=== PATIENT | male | born 1955 | race Caucasian/White ===

== ENCOUNTER 2020-10-03 10:52 | Emergency (ER) | payer MEDICARE ==
[2020-10-03 11:13] VITALS: BP 183/120; PULSE 123
[2020-10-03] MEDS ORDERED: Sodium Chloride 0.9% 10 ML Syringe FLUSH PRN (11:29)
--- NOTE | 2020-10-03 11:34 | EDM.PDOC ---
ED HPI GENERAL MEDICAL PROBLEM - General Chief Complaint: Cardiovascular Problem Stated Complaint: RETAINING WATER IN LEGS AND ABDOMEN Time Seen by Provider: 10/03/20 11:05 Source of Information: Reports: Patient, RN Notes Reviewed History Limitations: Reports: No Limitations - History of Present Illness INITIAL COMMENTS - FREE TEXT/NARRATIVE: Patient is a 64-year-old male presenting to the emergency department with complaints of a 2 to 3-week history of lower extremity edema and ascites. This is new for him. He states he has never had problems with edema in the past. Lewis s had no history of congestive heart failure or liver abnormalities. He does not have a primary care provider and has not seen a medical provider for about 5 years. He states has been taking an [id number] water pill with little relief. Has been wearing compression socks which are on at this time. He denies any chest pain, shortness of breath, or orthopnea. States he does have a mild cough which has been occurring for the last few weeks. Right Abdomen Pain Score (Numeric/FACES): 5 - Related Data Allergies Allergy/AdvReac Type Severity Reaction Status Date / Time Penicillins Allergy Hives Verified 10/03/20 11:02 Home Meds: Home Meds Ascorbic Acid [Vitamin C] 3,000 mg PO DAILY 10/03/20 [History] Baking Soda 0.5 tsp PO DAILY 10/03/20 [History] Cholecalciferol (Vitamin D3) [Vitamin D3] 5,000 mg PO DAILY 10/03/20 [History] Magnesium 250 mg PO DAILY 10/03/20 [History] Vitamin A 8,000 unit PO DAILY 10/03/20 [History] Zinc 50 mg PO DAILY 10/03/20 [History] Past Medical History HEENT History: Reports: Cataract, Impaired Vision Cardiovascular History: Reports: None Respiratory History: Reports: None Gastrointestinal History: Reports: None Genitourinary History: Reports: Other (See Below) Other Genitourinary History: burning with voiding "I cant pee much" Musculoskeletal History: Reports: Back Pain, Chronic Neurological History: Reports: None Psychiatric History: Reports: None Endocrine/Metabolic History: Reports: Obesity/BMI 30+ Hematologic History: Reports: None Immunologic History: Reports: None Oncologic (Cancer) History: Reports: None Dermatologic History: Reports: None - Infectious Disease History Infectious Disease History: Reports: Chicken Pox, Measles, Mumps, Rubella - Past Surgical History Head Surgeries/Procedures: Reports: None HEENT Surgical History: Reports: Cataract Surgery, Oral Surgery Other Musculoskeletal Surgeries/Procedures:: torn muscle surgery Social & Family History - Family History Family Medical History: No Pertinent Family History Endocrine/Metabolic: Reports: Diabetes, type II - Tobacco Use Tobacco Use Status *Q: Never Tobacco User - Caffeine Use Caffeine Use: Reports: Coffee - Recreational Drug Use Recreational Drug Use: Yes Drug Use in Last 12 Months: No Recreational Drug Type: Reports: Marijuana/Hashish Recreational Drug Use Frequency: Not Used In Over 1 Year ED ROS GENERAL - Review of Systems Review Of Systems: See Below Constitutional: Reports: No Symptoms. Denies: Fever, Chills, Weakness HEENT: Reports: No Symptoms Respiratory: Reports: Cough. Denies: Shortness of Breath Cardiovascular: Reports: Edema. Denies: Chest Pain, Lightheadedness, Syncope Endocrine: Reports: No Symptoms GI/Abdominal: Reports: No Symptoms : Reports: No Symptoms Musculoskeletal: Reports: No Symptoms Skin: Reports: No Symptoms Neurological: Reports: No Symptoms Psychiatric: Reports: No Symptoms Hematologic/Lymphatic: Reports: No Symptoms Immunologic: Reports: No Symptoms ED EXAM, GENERAL - Physical Exam Exam: See Below General Appearance: Alert, WD/WN, No Apparent Distress Respiratory/Chest: No Respiratory Distress, Normal Breath Sounds, No Accessory Muscle Use, Chest Non-Tender, Crackles (Bilateral bases) Cardiovascular: Normal Peripheral Pulses, Regular Rate, Rhythm, No Gallop, No JVD, No Murmur, No Rub, Other (4+ pitting edema to bilateral lower extremities extending up through the abdomen.) Neurological: Alert, Oriented, CN II-XII Intact, Normal Cognition, Normal Gait, Normal Reflexes, No Motor/Sensory Deficits Psychiatric: Normal Affect, Normal Mood Skin Exam: Warm, Dry, Intact, Normal Color, No Rash Course - Vital Signs Last Recorded V/S: Last Vital Signs Temp 97.1 F 10/03/20 11:08 Pulse 123 H 10/03/20 11:08 Resp 20 10/03/20 11:08 BP 183/120 H 10/03/20 11:08 Pulse Ox 90 L 10/03/20 11:08 - Orders/Labs/Meds Labs: Laboratory Tests 10/03/20 10/03/20 10/03/20 Range/Units 11:20 11:20 11:20 WBC 4.73 (4.23-9.07) K/mm3 RBC 4.89 (4.63-6.08) M/mm3 Hgb 14.9 D (13.7-17.5) gm/dl Hct 45.2 (40.1-51.0) % MCV 92.4 H D (79.0-92.2) fl MCH 30.5 (25.7-32.2) pg MCHC 33.0 (32.2-35.5) g/dl RDW Std Deviation 46.9 H (35.1-43.9) fL Plt Count 249 D (163-337) K/mm3 MPV 9.8 (9.4-12.3) fl Neut % (Auto) 61.0 (34.0-67.9) % Lymph % (Auto) 19.5 L (21.8-53.1) % [place] % (Auto) 16.1 H (5.3-12.2) % Eos % (Auto) 2.1 (0.8-7.0) Baso % (Auto) 0.2 (0.1-1.2) % Neut # (Auto) 2.89 (1.78-5.38) K/mm3 Lymph # (Auto) 0.92 L (1.32-3.57) K/mm3 [place] # (Auto) 0.76 (0.30-0.82) K/mm3 Eos # (Auto) 0.10 (0.04-0.54) K/mm3 Baso # (Auto) 0.01 (0.01-0.08) K/mm3 Manual Slide Review Abnormal smear Sodium 141 (136-145) mEq/L Potassium 3.8 (3.5-5.1) mEq/L Chloride 101 (98-107) mEq/L Carbon Dioxide 30 D (21-32) mEq/L Anion Gap 13.8 (5-15) BUN 35 H (7-18) mg/dL Creatinine 2.6 H D (0.7-1.3) mg/dL Est Cr Clr Drug Dosing 27.40 mL/min Estimated GFR (MDRD) 25 (>60) mL/min BUN/Creatinine Ratio 13.5 L (14-18) Glucose 174 H (80-115) mg/dL Calcium 8.8 (8.5-10.1) mg/dL Total Bilirubin 0.8 (0.2-1.0) mg/dL AST 28 (15-37) U/L ALT 22 (16-63) U/L Alkaline Phosphatase 138 H (46-116) U/L Troponin I 0.248 H* (0.00-0.056) ng/mL C-Reactive Protein 7.7 H* (<1.0) mg/dL NT-Pro-B Natriuret Pep 06828 H (0-125) pg/mL Total Protein 7.2 (6.4-8.2) g/dl Albumin 2.4 L (3.4-5.0) g/dl Globulin 4.8 gm/dL Albumin/Globulin Ratio 0.5 L (1-2) SARS-CoV-2 RNA (EKATERINA) (NEGATIVE) 10/03/20 Range/Units 13:00 WBC (4.23-9.07) K/mm3 RBC (4.63-6.08) M/mm3 Hgb (13.7-17.5) gm/dl Hct (40.1-51.0) % MCV (79.0-92.2) fl MCH (25.7-32.2) pg MCHC (32.2-35.5) g/dl RDW Std Deviation (35.1-43.9) fL Plt Count (163-337) K/mm3 MPV (9.4-12.3) fl Neut % (Auto) (34.0-67.9) % Lymph % (Auto) (21.8-53.1) % [place] % (Auto) (5.3-12.2) % Eos % (Auto) (0.8-7.0) Baso % (Auto) (0.1-1.2) % Neut # (Auto) (1.78-5.38) K/mm3 Lymph # (Auto) (1.32-3.57) K/mm3 [place] # (Auto) (0.30-0.82) K/mm3 Eos # (Auto) (0.04-0.54) K/mm3 Baso # (Auto) (0.01-0.08) K/mm3 Manual Slide Review Sodium (136-145) mEq/L Potassium (3.5-5.1) mEq/L Chloride (98-107) mEq/L Carbon Dioxide (21-32) mEq/L Anion Gap (5-15) BUN (7-18) mg/dL Creatinine (0.7-1.3) mg/dL Est Cr Clr Drug Dosing mL/min Estimated GFR (MDRD) (>60) mL/min BUN/Creatinine Ratio (14-18) Glucose (80-115) mg/dL Calcium (8.5-10.1) mg/dL Total Bilirubin (0.2-1.0) mg/dL AST (15-37) U/L ALT (16-63) U/L Alkaline Phosphatase (46-116) U/L Troponin I (0.00-0.056) ng/mL C-Reactive Protein (<1.0) mg/dL NT-Pro-B Natriuret Pep (0-125) pg/mL Total Protein (6.4-8.2) g/dl Albumin (3.4-5.0) g/dl Globulin gm/dL Albumin/Globulin Ratio (1-2) SARS-CoV-2 RNA (EKATERINA) Negative (NEGATIVE) Meds: Medications Discontinued Medications Generic Name Dose Route Start Last Admin Trade Name Freq PRN Reason Stop Dose Admin Furosemide 40 mg 10/03/20 12:55 10/03/20 13:05 Lasix IVPUSH 10/03/20 12:56 40 mg NOW ONE Administration Sodium Chloride 10 ml 10/03/20 11:29 10/03/20 12:09 Saline Flush FLUSH 10 ml ASDIRECTED PRN Administration Keep Vein Open - Re-Assessments/Exams Free Text/Narrative Re-Assessment/Exam: Patient is a 64-year-old male presenting to the emergency department with complaints of lower extremity edema extending up into his abdomen which began approximately 2 to 3 weeks ago. States has been taking an [id number] diuretic with no relief. He has been wearing compression stockings as well with no relief. Patient denies any cardiac history, however he also does not have a primary care provider and has not seen a medical provider for the last 5 years. He denies any significant shortness of breath, however oxygen saturations have been ranging from 87 to 90% on room air. He is currently on 2 L of oxygen satting in the upper 90s. He has had no chest pain that he can recall over the course of the last few weeks and denied any chest pain at the time of my exam. On exam, he does have crackles to the bilateral posterior bases of his lungs. Abdomen is taut and he has 4+ pitting edema to his bilateral lower extremities. I have ordered cardiac work-up including CBC, CMP, CRP, troponin, EKG, chest x- ray. We will also complete a CT scan of his abdomen pelvis without contrast. 10/03/20 13:34 Hematology was significant for BUN elevated at 35, creatinine 2.6, glucose 174, troponin 0 0.248, CRP 7.7, proBNP 14,550. EKG was negative for any acute ischemia. Chest x-ray showed generalized pulmonary vascular congestion suspicious for fluid overload. CT scan of the abdomen pelvis showed 1. Anasarca with bilateral pleural effusions likely due to fluid overload. 2. Bilateral simple renal cyst. 3. Minimal ascites. 4. Diverticulosis of the left colon. Based on these findings, patient is suffering from congestive heart failure as well as renal failure. Called and spoke with the register in chancery, Dr. Brown, at [facility] in [place]. He is recommending patient be transferred to cardiology services for further work-up. I have ordered a [address] Brown recommended that we give him Lasix 40 mg IV. I will call [facility] back once Covid results are available. 10/03/20 14:29 Patient's Covid results were negative. Called [facility] and spoke with hospitalist, Dr. Bean. He has accepted the patient for transfer. They will call back with her room number. Once her numbers given, we will dispatch [facility] ambulance for transfer. Departure - Departure Time of Disposition: 14:29 Disposition: DC/Tfer to [facility] 02 Reason for Transfer *Q: Other Condition: Good Clinical Impression: Elevated troponin Heart failure Qualifiers: Heart failure type: unspecified Heart failure chronicity: unspecified Qualified Code(s): I50.9 - Heart failure, unspecified Kidney failure Qualifiers: Renal failure chronicity: unspecified chronicity Qualified Code(s): N19 - Unspecified kidney failure Referrals: PCP,None [Primary Care Provider] - Forms: ED Department Discharge Sepsis Event Note (ED) - Evaluation Sepsis Screening Result: No Definite Risk
--- NOTE | 2020-10-03 12:41 | CT ---
PROCEDURE INFORMATION: Exam: CT Abdomen And Pelvis Without Contrast Exam date and time: 10/03/2020 11:42 AM Age: 64 years old Clinical indication: Other: Ascites TECHNIQUE: Imaging protocol: Computed tomography of the abdomen and pelvis without contrast. COMPARISON: CT Abdomen Pelvis w Cont 10/21/2015 2:31 AM FINDINGS: Lungs: Bilateral pleural effusions. Prominent pulmonary vessels and interstitial markings. Liver: Normal. No mass. Gallbladder and bile ducts: Normal. No calcified stones. No ductal dilation. Pancreas: Normal. No ductal dilation. Spleen: Normal. No splenomegaly. Adrenal glands: Normal. No mass. Kidneys and ureters: Bilateral simple renal cysts. No hydronephrosis or nephrolithiasis. Stomach and bowel: No obstruction. No mucosal thickening. Diverticulosis of the descending and sigmoid colon. Appendix: No evidence of appendicitis. Intraperitoneal space: Unremarkable. No free air. Moderate amount of free fluid in the pelvis and left pericolic gutter. Vasculature: Unremarkable. No abdominal aortic aneurysm. Lymph nodes: Unremarkable. No enlarged lymph nodes. Urinary bladder: Bladder wall appears symmetrically thickened. Reproductive: Unremarkable as visualized. Bones/joints: Unremarkable. No acute fracture. Soft tissues: Anasarca. IMPRESSION: 1. Anasarca with bilateral pleural effusions likely due to fluid overload. 2. Bilateral simple renal cysts. 3. Minimal ascites. 4. Diverticulosis of the left colon. COMMENTS: Consistent with the [employer]'s Incidental Findings Committee white paper (J Am Christy Radiol 2018): Any incidental renal lesion less than 1 cm or classified as too small to characterize, or any incidental cystic renal lesion characterized as simple-appearing, is likely benign. No follow-up imaging is recommended for these lesions per consensus recommendations based on imaging criteria. Thank you for allowing us to participate in the care of your patient. Dictated and Authenticated by: Neftali Nguyen MD 10/03/2020 1:12 PM Central Time ([place] & [place]) [facility]
--- NOTE | 2020-10-03 12:42 | CR ---
PROCEDURE INFORMATION: Exam: XR Chest, 2 Views Exam date and time: 10/03/2020 11:39 AM Age: 64 years old Clinical indication: Other: Edema TECHNIQUE: Imaging protocol: XR of the chest Views: 2 views. COMPARISON: No relevant prior studies available. FINDINGS: Lungs: Pulmonary vasculature appears congested. Prominent interstitial markings bilaterally concerning for interstitial edema. Pleural space: Unremarkable. Left pleural effusion. No pneumothorax. Heart/Mediastinum: Unremarkable. No cardiomegaly. Bones/joints: Unremarkable. IMPRESSION: Radiographic findings suspicious for fluid overload. Follow-up recommended. Thank you for allowing us to participate in the care of your patient. Dictated and Authenticated by: Neftali Nguyen MD 10/03/2020 12:55 PM Central Time ([place] & [place]) [facility]
[2020-10-03] MEDS ORDERED: Furosemide 40 MG/4 ML VIAL IVPUSH ONE (12:55)
== END 2020-10-03 16:00 ==
LOC: JD.ED 10:52
DX: N19 Unspecified kidney failure (principal); I50.9 Heart failure, unspecified; R79.89 Other specified abnormal findings of blood chemistry; E66.9 Obesity, unspecified; Z68.26 Body mass index [BMI] 26.0-26.9, adult; Z88.0 Allergy status to penicillin; Z79.899 Other long term (current) drug therapy
CPT/HCPCS: 36415; 71046; 74176; 80053; 83880; 84484; 85025; 86140; 93005; 96374; 99285; J1940; U0002

== ENCOUNTER 2021-05-05 15:05 | Emergency (ER) | payer MEDICARE, OTHER ==
[2021-05-05 15:28] VITALS: BP 92/61; PULSE 88
[2021-05-05] MEDS ORDERED: Sodium Chloride 0.9% 10 ML Syringe FLUSH PRN (15:52)
[2021-05-05] MEDS ORDERED: Furosemide 40 MG/4 ML VIAL IVPUSH ONE ×2 (15:54→17:30)
--- NOTE | 2021-05-05 16:28 | CR ---
Chest: Portable view of the chest was obtained. Comparison: No previous study is available. Heart size is not enlarged. Upper mediastinum is normal. Lung markings are increased which are suspicious for pulmonary vascular congestion. Possible minimal pleural effusions are present. Impression: 1. Heart is not enlarged although lung galaviz have the appearance of mild CHF. Please correlate with the patient's symptoms. Diagnostic code #3
[2021-05-05] MEDS ORDERED: Furosemide 100 MG in Sodium Chloride 0.9% 90 ML IV STA (17:30)
--- NOTE | 2021-05-05 17:50 | EDM.PDOC ---
ED HPI GENERAL MEDICAL PROBLEM - General Chief Complaint: Cardiovascular Problem Stated Complaint: LEGS SWELLING Time Seen by Provider: 05/05/21 15:14 Source of Information: Reports: Patient History Limitations: Reports: No Limitations, Other (ED vital signs reveal a temp of 98.8, pulse of 88, respiratory rate of 20, blood pressure 92/61, and pulse ox 85% on room air.) - History of Present Illness INITIAL COMMENTS - FREE TEXT/NARRATIVE: 65-year-old male presents the emergency department with complaints of increasing shortness of breath and bilateral lower extremity swelling. Patient states he was hospitalized back in September after he was seen here in the emergency department. He was transferred to [facility] for CHF exacerbation and elevated troponins as well as renal failure. He states he stayed at the hospital for approximately week and was discharged home. He did not follow-up with a primary care provider and he does not have a primary care provider. He states he took his medications until they ran out which he states was only 3 weeks ago. Approximately 3 weeks ago he started having increased shortness of breath and leg swelling. Denies any recent fever, chills, nausea, vomiting or diarrhea. He states his abdomen is swollen as well. He has had orthopnea. He denies any cough. Of note he does have a history of renal failure, CHF, diabetes, and hypothyroidism. - Related Data Allergies Allergy/AdvReac Type Severity Reaction Status Date / Time Penicillins Allergy Hives Verified 05/05/21 15:28 Home Meds: Home Meds Ascorbic Acid [Vitamin C] 3,000 mg PO DAILY 10/03/20 [History] Cholecalciferol (Vitamin D3) [Vitamin D3] 5,000 mg PO DAILY 10/03/20 [History] Magnesium 250 mg PO DAILY 10/03/20 [History] Vitamin A 8,000 unit PO DAILY 10/03/20 [History] Zinc 50 mg PO DAILY 10/03/20 [History] Aspirin [Halfprin] 81 mg PO DAILY 05/05/21 [History] Dapagliflozin Propanediol [Farxiga] 10 mg PO DAILY 05/05/21 [History] Levothyroxine 25 mcg PO ACBREAKFAST 05/05/21 [History] Spironolactone [Aldactone] 25 mg PO DAILY 05/05/21 [History] Torsemide 20 mg PO BID 05/05/21 [History] atorvaSTATin [Lipitor] 20 mg PO DAILY 05/05/21 [History] carvediloL [Carvedilol] 25 mg PO DAILY 05/05/21 [History] lisinopriL [Lisinopril] 10 mg PO DAILY 05/05/21 [History] metFORMIN [Glucophage] 500 mg PO BIDMEALS 05/05/21 [History] Past Medical History HEENT History: Reports: Cataract, Impaired Vision Cardiovascular History: Reports: Heart Failure Respiratory History: Reports: None Gastrointestinal History: Reports: None Genitourinary History: Reports: Other (See Below) Other Genitourinary History: burning with voiding "I cant pee much" Musculoskeletal History: Reports: Back Pain, Chronic Neurological History: Reports: None Psychiatric History: Reports: None Endocrine/Metabolic History: Reports: Obesity/BMI 30+ Hematologic History: Reports: None Immunologic History: Reports: None Oncologic (Cancer) History: Reports: None Dermatologic History: Reports: None - Infectious Disease History Infectious Disease History: Reports: Chicken Pox, Measles, Mumps, Rubella - Past Surgical History HEENT Surgical History: Reports: Cataract Surgery, Oral Surgery Other Musculoskeletal Surgeries/Procedures:: torn muscle surgery Social & Family History - Family History Family Medical History: No Pertinent Family History Endocrine/Metabolic: Reports: Diabetes, type II - Tobacco Use Tobacco Use Status *Q: Never Tobacco User Second Hand Smoke Exposure: No - Caffeine Use Caffeine Use: Reports: Coffee, Tea - Recreational Drug Use Recreational Drug Use: No ED ROS GENERAL - Review of Systems Review Of Systems: See Below Constitutional: Reports: No Symptoms HEENT: Reports: No Symptoms Respiratory: Reports: Shortness of Breath. Denies: Wheezing, Pleuritic Chest Pain, Cough, Sputum Cardiovascular: Reports: Dyspnea on Exertion, Edema (4+ pitting), Orthopnea. Denies: Chest Pain, Palpitations, Syncope Endocrine: Reports: No Symptoms GI/Abdominal: Reports: Decreased Appetite, Distension. Denies: Abdominal Pain, Constipation, Diarrhea, Nausea, Vomiting : Reports: Urinary Retention Musculoskeletal: Reports: No Symptoms Skin: Reports: No Symptoms Neurological: Reports: No Symptoms Psychiatric: Reports: No Symptoms Hematologic/Lymphatic: Reports: No Symptoms Immunologic: Reports: No Symptoms ED EXAM, GENERAL - Physical Exam Exam: See Below Exam Limited By: No Limitations General Appearance: Alert, WD/WN, Mild Distress Eye Exam: Bilateral Eye: EOMI Ears: Normal External Exam, Hearing Grossly Normal Nose: Normal Inspection Throat/Mouth: Normal Inspection, Normal Lips, Normal Voice, No Airway Compromise Head: Atraumatic Neck: Normal Inspection, Supple Respiratory/Chest: No Accessory Muscle Use, Chest Non-Tender, Respiratory Distress (Mild), Crackles (Fine crackles noted to bilateral bases posteriorly). No: Lungs Clear (Fine crackles noted to bilateral bases posteriorly) Cardiovascular: Normal Peripheral Pulses, Regular Rate, Rhythm, No Murmur. No: No Edema (4+ pitting edema noted to bilateral lower extremities) Peripheral Pulses: 2+: Radial (L), Radial (R) GI/Abdominal: Normal Bowel Sounds, Soft, Distended, Tender (Right and left upper quadrants) (Male) Exam: Deferred Rectal (Males) Exam: Deferred Back Exam: Normal Inspection Extremities: Pedal Edema (4+ pitting edema noted to bilateral lower extremities) Neurological: Alert, Oriented, Normal Cognition Psychiatric: Normal Affect, Normal Mood Skin Exam: Warm, Dry, Intact, No Rash, Pallor. No: Normal Color Lymphatic: No Adenopathy #1 Interpretation EKG Date: 05/05/21 Time: 16:10 Rhythm: NSR Rate (Beats/Min): 82 [place]: Normal P-Wave: Present QRS: Normal ST-T: Normal QT: Prolonged EKG Interpretation Comments: Per Dr. Cardona interpretation: Sinus rhythm at 82 bpm; early R wave transitionconsider RVH/septal hypertrophy; QTC is markedly prolonged; T wave flattening I, aVL, II, aVF, V5 and V6 Course - Vital Signs Text/Narrative:: Upon assessment the patient is lying in bed and he does not appear to be in any type of distress. O2 saturations are 95% on 3 2 L of oxygen per nasal cannula. Lung sounds do have fine crackles noted to bilateral bases. He does have anasarca noted with some tenderness to the right and left upper abdomen. States he has had issues with voiding and is not making urine. Has issues with hesi tancy and decreased urine output. He has also noticed increased swelling to his bilateral lower extremities. Sclera does appear slightly jaundiced. I have ordered labs to include a CBC, CMP, magnesium level, CRP, troponin, proBNP, UA with micro and culture if indicated. I have also ordered him to receive Lasix 40 mg IV x1 now. Last Recorded V/S: Last Vital Signs Temp 98.8 F 05/05/21 15:25 Pulse 88 05/05/21 15:25 Resp 20 05/05/21 15:25 BP 92/61 05/05/21 15:25 Pulse Ox 95 05/05/21 15:25 - Orders/Labs/Meds Orders: Active Orders 24 hr Category Date Time Status EKG Documentation Completion [RC] STAT Care 05/05/21 15:52 Active Urinary Catheter Assessment [RC] ASDIRECTED Care 05/05/21 17:24 Active Urinary Catheter Insertion [Insert Urinary Catheter] [ Care 05/05/21 17:30 Ordered OM.PC] Q24H Furosemide [Lasix] 100 mg Med 05/05/21 17:30 Active Sodium Chloride 0.9% [Normal Saline] 90 ml IV NOW Sodium Chloride 0.9% [Saline Flush] Med 05/05/21 15:52 Active 10 ml FLUSH ASDIRECTED PRN Saline Lock Insert [OM.PC] Stat Oth 05/05/21 15:52 Ordered Medication Orders Furosemide 100 mg/ Sodium (Chloride) 100 mls @ 10 mls/hr IV NOW STA; Protocol Stop: 05/06/21 03:29 Last Admin: 05/05/21 17:41 Dose: 10 ml/hr, 10 mls/hr Documented by: MAYDA Sodium Chloride (Sodium Chloride 0.9% 10 Ml Syringe) 10 ml FLUSH ASDIRECTED PRN PRN Reason: Keep Vein Open Last Admin: 05/05/21 15:57 Dose: 10 ml Documented by: MAYDA Labs: Laboratory Tests 05/05/21 05/05/21 05/05/21 Range/Units 15:55 15:55 15:55 WBC 8.45 (4.23-9.07) K/mm3 RBC 3.74 L (4.63-6.08) M/mm3 Hgb 11.6 L D (13.7-17.5) gm/dl Hct 35.9 L (40.1-51.0) % MCV 96.0 H D (79.0-92.2) fl MCH 31.0 (25.7-32.2) pg MCHC 32.3 (32.2-35.5) g/dl RDW Std Deviation 46.1 H (35.1-43.9) fL Plt Count 225 (163-337) K/mm3 MPV 9.7 (9.4-12.3) fl Neut % (Auto) 85.0 H (34.0-67.9) % Lymph % (Auto) 5.0 L (21.8-53.1) % [place] % (Auto) 8.4 (5.3-12.2) % Eos % (Auto) 0.7 L (0.8-7.0) Baso % (Auto) 0.1 (0.1-1.2) % Neut # (Auto) 7.18 H (1.78-5.38) K/mm3 Lymph # (Auto) 0.42 L (1.32-3.57) K/mm3 [place] # (Auto) 0.71 (0.30-0.82) K/mm3 Eos # (Auto) 0.06 (0.04-0.54) K/mm3 Baso # (Auto) 0.01 (0.01-0.08) K/mm3 Manual Slide Review Abnormal smear Sodium 140 (136-145) mEq/L Potassium 4.4 (3.5-5.1) mEq/L Chloride 107 (98-107) mEq/L Carbon Dioxide 19 L D (21-32) mEq/L Anion Gap 18.4 H (5-15) BUN 62 H D (7-18) mg/dL Creatinine 3.0 H (0.7-1.3) mg/dL Est Cr Clr Drug Dosing 23.43 mL/min Estimated GFR (MDRD) 21 (>60) mL/min BUN/Creatinine Ratio 20.7 H (14-18) Glucose 157 H (70-99) mg/dL Calcium 8.0 L (8.5-10.1) mg/dL Magnesium 1.8 (1.8-2.4) mg/dL Total Bilirubin 0.5 (0.2-1.0) mg/dL AST 32 (15-37) U/L ALT 31 (16-63) U/L Alkaline Phosphatase 404 H (46-116) U/L Troponin I 0.468 H* (0.00-0.056) ng/mL C-Reactive Protein 14.0 H* (<1.0) mg/dL NT-Pro-B Natriuret Pep > 29202 H (0-125) pg/mL Total Protein 6.1 L (6.4-8.2) g/dl Albumin 1.2 L (3.4-5.0) g/dl Globulin 4.9 gm/dL Albumin/Globulin Ratio 0.2 L (1-2) TSH 3rd Generation 9.986 H (0.358-3.74) uIU/mL Urine Color (Yellow) Urine Appearance (Clear) Urine pH (5.0-8.0) Ur Specific [place] (1.005-1.030) Urine Protein (Negative) Urine Glucose (UA) (Negative) Urine Ketones (Negative) Urine Occult Blood (Negative) Urine Nitrite (Negative) Urine Bilirubin (Negative) Urine Urobilinogen (0.2-1.0) Ur Leukocyte Esterase (Negative) U Hyaline Cast (Auto) (0-5) /lpf Urine RBC (0-5) /hpf Urine WBC (0-5) /hpf Urine WBC Clumps (NOT SEEN) /hpf Ur Squamous Epith Cells (0-5) /hpf Amorphous Sediment (NOT SEEN) /hpf Urine Bacteria (FEW) /hpf Fine Granular Casts (0-5) /lpf Urine Mucus (FEW) /hpf SARS-CoV-2 RNA (EKATERINA) (NEGATIVE) 05/05/21 05/05/21 Range/Units 17:09 17:17 WBC (4.23-9.07) K/mm3 RBC (4.63-6.08) M/mm3 Hgb (13.7-17.5) gm/dl Hct (40.1-51.0) % MCV (79.0-92.2) fl MCH (25.7-32.2) pg MCHC (32.2-35.5) g/dl RDW Std Deviation (35.1-43.9) fL Plt Count (163-337) K/mm3 MPV (9.4-12.3) fl Neut % (Auto) (34.0-67.9) % Lymph % (Auto) (21.8-53.1) % [place] % (Auto) (5.3-12.2) % Eos % (Auto) (0.8-7.0) Baso % (Auto) (0.1-1.2) % Neut # (Auto) (1.78-5.38) K/mm3 Lymph # (Auto) (1.32-3.57) K/mm3 [place] # (Auto) (0.30-0.82) K/mm3 Eos # (Auto) (0.04-0.54) K/mm3 Baso # (Auto) (0.01-0.08) K/mm3 Manual Slide Review Sodium (136-145) mEq/L Potassium (3.5-5.1) mEq/L Chloride (98-107) mEq/L Carbon Dioxide (21-32) mEq/L Anion Gap (5-15) BUN (7-18) mg/dL Creatinine (0.7-1.3) mg/dL Est Cr Clr Drug Dosing mL/min Estimated GFR (MDRD) (>60) mL/min BUN/Creatinine Ratio (14-18) Glucose (70-99) mg/dL Calcium (8.5-10.1) mg/dL Magnesium (1.8-2.4) mg/dL Total Bilirubin (0.2-1.0) mg/dL AST (15-37) U/L ALT (16-63) U/L Alkaline Phosphatase (46-116) U/L Troponin I (0.00-0.056) ng/mL C-Reactive Protein (<1.0) mg/dL NT-Pro-B Natriuret Pep (0-125) pg/mL Total Protein (6.4-8.2) g/dl Albumin (3.4-5.0) g/dl Globulin gm/dL Albumin/Globulin Ratio (1-2) TSH 3rd Generation (0.358-3.74) uIU/mL Urine Color Dark yellow (Yellow) Urine Appearance Slt cloudy H (Clear) Urine pH 5.5 (5.0-8.0) Ur Specific [place] > or = 1.030 (1.005-1.030) Urine Protein 3+ H (Negative) Urine Glucose (UA) Trace H (Negative) Urine Ketones Negative (Negative) Urine Occult Blood 2+ H (Negative) Urine Nitrite Negative (Negative) Urine Bilirubin Negative (Negative) Urine Urobilinogen 0.2 (0.2-1.0) Ur Leukocyte Esterase Negative (Negative) U Hyaline Cast (Auto) 5-10 H (0-5) /lpf Urine RBC 5-10 H (0-5) /hpf Urine WBC 30-40 H (0-5) /hpf Urine WBC Clumps Few (NOT SEEN) /hpf Ur Squamous Epith Cells 0-5 (0-5) /hpf Amorphous Sediment Few H (NOT SEEN) /hpf Urine Bacteria Many H (FEW) /hpf Fine Granular Casts 0-5 (0-5) /lpf Urine Mucus Few (FEW) /hpf SARS-CoV-2 RNA (EKATERINA) Negative (NEGATIVE) Meds: Medications Generic Name Dose Route Start Last Admin Trade Name Freq PRN Reason Stop Dose Admin Furosemide 100 mg/ Sodium 100 mls @ 10 mls/hr 05/05/21 17:30 05/05/21 17:41 Chloride IV 05/06/21 03:29 10 ml/hr NOW STA 10 mls/hr Administration Protocol Sodium Chloride 10 ml 05/05/21 15:52 05/05/21 15:57 Sodium Chloride 0.9% 10 Ml Syringe FLUSH 10 ml ASDIRECTED PRN Administration Keep Vein Open Discontinued Medications Generic Name Dose Route Start Last Admin Trade Name Freq PRN Reason Stop Dose Admin Furosemide 40 mg 05/05/21 15:54 05/05/21 16:04 Furosemide 40 Mg/4 Ml Vial IVPUSH 05/05/21 15:55 40 mg NOW ONE Administration Furosemide 40 mg 05/05/21 17:30 05/05/21 17:40 Furosemide 40 Mg/4 Ml Vial IVPUSH 05/05/21 17:31 40 mg NOW ONE Administration - Re-Assessments/Exams Free Text/Narrative Re-Assessment/Exam: 05/05/21 16:30 Radiologist impression portable view of the chest: 1. Heart is not enlarged although lung galaviz have the appearance of mild CHF. Please correlate with the patient's symptoms. 05/05/21 17:00 Hematology reveals a WBC of 8.45, hemoglobin 11.6, hematocrit 35.9, platelet count 225, Chemistry reveals a sodium of 140, potassium 4.4, carbon dioxide 19, anion gap 18.4, BUN 62, creatinine 3.0, GFR 21, glucose 157, calcium 8.0, magnesium 1.8, AST 32, ALT 31, alk phos 404, troponin 0 0.468, C-reactive protein 14.0, proBNP greater than 35,000, total protein 6.1, albumin 1.2, TSH 9.986 Urinalysis shows 3+ protein, trace of glucose, 2+ occult blood, nitrite negative, leukocyte Estrace negative Covid swab is pending. 05/05/21 17:10 I believe this patient does need to be transferred to a higher level of care as his troponin, BNP and creatinine are all significantly elevated. Patient has not voided since receiving 1st dose of IV Lasix. Nursing staff is putting a Mcmahon catheter in the patient to monitor strict CELENA. I have phoned [facility] call and spoken to the 1 call nurse. , has accepted transfer of this patient via [facility] however he would like me to speak with the formulator on-call as to how to manage the patient's heart failure as he has not diuresed from 1st dose of Lasix. I then spoke with Dr. Stokes, and she request that the patient receive another dose of 40 mg of IV Lasix x1 now and then we are to start a Lasix drip at 10 mL's per hour on this patient. I discussed this plan with the patient and his and they both agree to being transferred to [facility] in [place]. There may be a delay in transport as we have of their patients needing to be transferred to [place] so nursing staff is attempting to arrange ambulance. Departure - Departure Time of Disposition: 18:53 Disposition: DC/Tfer to Acute Hospital 02 Reason for Transfer *Q: Other Condition: Fair Clinical Impression: Elevated troponin Heart failure Qualifiers: Heart failure type: unspecified Heart failure chronicity: unspecified Qualified Code(s): I50.9 - Heart failure, unspecified Kidney failure Qualifiers: Renal failure chronicity: unspecified chronicity Qualified Code(s): N19 - Unspecified kidney failure Referrals: PCP,None [Primary Care Provider] - Forms: ED Department Discharge Sepsis Event Note (ED) - Evaluation Sepsis Screening Result: No Definite Risk - Focused Exam Vital Signs: Vital Signs Temp Pulse Resp BP Pulse Ox Pulse Ox 05/05/21 15:25 98.8 F 88 20 92/61 85 L 95 - My Orders Last 24 Hours: My Active Orders 05/05/21 15:52 EKG Documentation Completion [RC] STAT Sodium Chloride 0.9% [Saline Flush] 10 ml FLUSH ASDIRECTED PRN Saline Lock Insert [OM.PC] Stat 05/05/21 17:24 Urinary Catheter Assessment [RC] ASDIRECTED 05/05/21 17:30 Urinary Catheter Insertion [Insert Urinary Catheter] [OM.PC] Q24H Furosemide [Lasix] 100 mg Sodium Chloride 0.9% [Normal Saline] 90 ml IV NOW - Assessment/Plan Last 24 Hours: My Active Orders 05/05/21 15:52 EKG Documentation Completion [RC] STAT Sodium Chloride 0.9% [Saline Flush] 10 ml FLUSH ASDIRECTED PRN Saline Lock Insert [OM.PC] Stat 05/05/21 17:24 Urinary Catheter Assessment [RC] ASDIRECTED 05/05/21 17:30 Urinary Catheter Insertion [Insert Urinary Catheter] [OM.PC] Q24H Furosemide [Lasix] 100 mg Sodium Chloride 0.9% [Normal Saline] 90 ml IV NOW
== END 2021-05-05 18:59 ==
LOC: JD.ED 15:05
DX: I50.9 Heart failure, unspecified (principal); N19 Unspecified kidney failure; R79.89 Other specified abnormal findings of blood chemistry; E66.9 Obesity, unspecified; E11.9 Type 2 diabetes mellitus without complications; Z79.82 Long term (current) use of aspirin; Z79.84 Long term (current) use of oral hypoglycemic drugs; Z79.899 Other long term (current) drug therapy; Z68.32 Body mass index [BMI] 32.0-32.9, adult; Z88.0 Allergy status to penicillin; Z20.822 Contact with and (suspected) exposure to COVID-19
CPT/HCPCS: 36415; 51702; 71045; 80053; 81001; 83735; 83880; 84443; 84484; 85025; 86140; 93005; 94762; 96365; 96376; 99285; J1940; U0002; 93010; 99284

== ENCOUNTER 2021-06-07 06:57 | Emergency (ER) | payer MEDICARE, OTHER ==
--- NOTE | 2021-06-07 08:00 | EDM.PDOC ---
ED HPI GENERAL MEDICAL PROBLEM - General Chief Complaint: CPR in Progress Stated Complaint: CAME FROM [facility] Time Seen by Provider: 06/07/21 07:07 Source of Information: Reports: Family (spouse), Old Records, RN Notes Reviewed - History of Present Illness INITIAL COMMENTS - FREE TEXT/NARRATIVE: Pt is a 65 yr old male that has been brought over from [facility] after becoming unresponsive at around 6:45 this AM shortly after starting his dialysis run. Rapid response was called at 6:46 and according to ED staff on their arrival he was not breathing and had no pulse. Once his lines were unhooked he was laid fl at and CPR was started. He arrived at our ED at 06:49 CPR in progress. No further medical information available at time of arrival. 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 - Related Data Allergies Allergy/AdvReac Type Severity Reaction Status Date / Time Penicillins Allergy Hives Verified 05/05/21 15:28 Home Meds: Home Meds Ascorbic Acid [Vitamin C] 3,000 mg PO DAILY 10/03/20 [History] Cholecalciferol (Vitamin D3) [Vitamin D3] 5,000 mg PO DAILY 10/03/20 [History] Magnesium 250 mg PO DAILY 10/03/20 [History] Vitamin A 8,000 unit PO DAILY 10/03/20 [History] Zinc 50 mg PO DAILY 10/03/20 [History] Aspirin [Halfprin] 81 mg PO DAILY 05/05/21 [History] Dapagliflozin Propanediol [Farxiga] 10 mg PO DAILY 05/05/21 [History] Levothyroxine 25 mcg PO ACBREAKFAST 05/05/21 [History] Spironolactone [Aldactone] 25 mg PO DAILY 05/05/21 [History] Torsemide 20 mg PO BID 05/05/21 [History] atorvaSTATin [Lipitor] 20 mg PO DAILY 05/05/21 [History] carvediloL [Carvedilol] 25 mg PO DAILY 05/05/21 [History] lisinopriL [Lisinopril] 10 mg PO DAILY 05/05/21 [History] metFORMIN [Glucophage] 500 mg PO BIDMEALS 05/05/21 [History] Past Medical History HEENT History: Reports: Cataract, Impaired Vision Cardiovascular History: Reports: Heart Failure Respiratory History: Reports: None Gastrointestinal History: Reports: None Genitourinary History: Reports: Other (See Below) Other Genitourinary History: burning with voiding "I cant pee much" Musculoskeletal History: Reports: Back Pain, Chronic Neurological History: Reports: None Psychiatric History: Reports: None Endocrine/Metabolic History: Reports: Obesity/BMI 30+ Hematologic History: Reports: None Immunologic History: Reports: None Oncologic (Cancer) History: Reports: None Dermatologic History: Reports: None - Infectious Disease History Infectious Disease History: Reports: Chicken Pox, Measles, Mumps, Rubella - Past Surgical History HEENT Surgical History: Reports: Cataract Surgery, Oral Surgery Other Musculoskeletal Surgeries/Procedures:: torn muscle surgery Social & Family History - Family History Family Medical History: No Pertinent Family History Endocrine/Metabolic: Reports: Diabetes, type II - Caffeine Use Caffeine Use: Reports: Coffee, Tea ED ROS GENERAL - Review of Systems Review Of Systems: Unable To Obtain Reason Not Obtained: unresponsive, cardiac arrest ED EXAM, CPR - Physical Exam Exam: See Below Limited By: Unresponsive, Other (CPR in progress) General Appearance: Other (Unresponsive, not breathing, bagged ventilations by RT and chest compresions in progress) Eye Exam: Bilateral Eye: Other (Pupils moderately dilated, unresponsive to light) Throat/Mouth: Normal Inspection Head: Atraumatic Respiratory Chest: Other (bilat breath sounds with bagged respirations) Cardiovascular: CPR In Progress, Other (no pulse when CPR paused) Extremities: Pedal Edema (mild bilat) Skin Exam: Cool, Pallor Course - Re-Assessments/Exams Free Text/Narrative Re-Assessment/Exam: 06/07/21 08:05 As noted patient arrived to ED at about 06:59, CPR in progress after becoming unresponsive, not breathing, no pulse about 15 minutes prior. Code Emeka called as patient arrived to ED. Cardiac moniter showed asystole. It was verified that there was no femoral pulse, no heart tones. With asystole after onset of arrest about 15 minutes ago and CPR for more than [address] Cardona and I agreed that any further resuscitative efforts were not going to result in survival to hospital discharge. CPR stopped at 07:01. Time of 07:01. I did visit with his at about 07:10 in the family consult room to get more information. Information also obtained reviewing chart of ED visit 05/05/21 which resulted in transfer to [facility]. His states he has not been feeling well for several days, primarily generalized weakness and "just not feeling well" He missed his regular scheduled dialysis yesterday, did not feel up to going. His states he was weak, dizzy this morning, "they had trouble getting him into the car". Pt status on arrival to dialysis unknown. She states he has b een chronically short of breath. Had not been complaining of chest pain. He has hx of CAD, CHF, Type 2 diabetes, renal failure on dialysis, and hypothyroidism. No hx of smoking. A shunt had been place R arm during his hospitalization at [facility] and has been on dialysis for about the past 4 weeks. Departure - Departure Time of Disposition: 07:05 Disposition: DC/Tfer to Other 70 Preliminary Cause of *Q: Cardiac Arrest Clinical Impression: Cardiac arrest Myocardial infarction acute Qualifiers: Myocardial infarction type: unspecified Involved coronary artery: unspecified coronary artery Qualified Code(s): I21.9 - Acute myocardial infarction, unspecified Congestive heart failure (CHF) Qualifiers: Heart failure type: combined systolic and diastolic Heart failure chronicity: chronic Qualified Code(s): I50.42 - Chronic combined systolic (congestive) and diastolic (congestive) heart failure Renal failure Qualifiers: Renal failure chronicity: unspecified chronicity Qualified Code(s): N19 - Unspecified kidney failure - Discharge Information Referrals: Bob Rogel MD [Primary Care Provider] -
== END 2021-06-07 11:53 | disposition expired ==
LOC: JD.ED 06:57
DX: I46.9 Cardiac arrest, cause unspecified (principal); I50.42 Chronic combined systolic (congestive) and diastolic (congestive) heart failure; I21.9 Acute myocardial infarction, unspecified; E11.22 Type 2 diabetes mellitus with diabetic chronic kidney disease; N18.6 End stage renal disease; I25.10 Atherosclerotic heart disease of native coronary artery without angina pectoris; E03.9 Hypothyroidism, unspecified; E66.9 Obesity, unspecified; Z99.2 Dependence on renal dialysis; Z88.0 Allergy status to penicillin; Z79.82 Long term (current) use of aspirin; Z79.899 Other long term (current) drug therapy
CPT/HCPCS: 92950; 99285; 99285-25